=== PATIENT | male | born 1955 | race Caucasian/White ===

== ENCOUNTER → 2024-09-22 09:30 | Outpatient (REF) | payer MEDICARE, OTHER, SELFPAY | LOC: DHVS 09:30 | PROVIDERS: ATTENDING PHYSICIAN Surgery Vascular Surgery; FAMILY PHYSICIAN Internal Medicine | DX: I65.22 Occlusion and stenosis of left carotid artery (principal) | CPT/HCPCS: 93880 ==

== ENCOUNTER 2025-03-08 07:25 | Day surgery (SDC) | payer MEDICARE, OTHER, SELFPAY ==
[2025-03-08] VITALS (14 sets, daily range): BP systolic 83–175; BP diastolic 52–70; BMI 33.3
[2025-03-08 08:08] LABS: Hematocrit 38.8 % (39.0-52.0); Hemoglobin 13.1 g/dL (13.0-18.0); Mean Corp Hgb Conc. 33.8 g/dL (33.0-37.0); Mean Corpuscular Volume 97.2 fL (80.0-94.0); Platelet Count 224 10^3/uL (130-400); Red Cell Dist. Width 12.3 % (11.5-14.5)
--- NOTE | 2025-03-08 09:13 | ITS.CL.CATH ---
Legal Archivist - Catheterization
Cardiac Catheterization
Procedure Report:
LEFT HEART CATHETERIZATION
Date of Procedure: March 08, 2025
Procedures performed:
1: Coronary angiography
2: Left ventricular hemodynamic assessment
Primary Care Physician: Dr. Ailyn Pickett
Primary Skin Diver: Dr. Beulah Jaimes
INDICATION: The patient is a 69-year-old man with a past medical history significant for hypertension who is referred for cardiac catheterization in light of exertional chest symptoms concerning for angina. He reports having symptoms for over a
year and has hypertensive heart disease with poorly controlled systemic hypertension and at least moderate LVH on prior echocardiography. Nuclear perfusion images with stress testing in June were low risk. He did have a hypertensive response
with ischemic EKGs and symptoms.
ACCESS: The patient was prepped and draped in usual sterile fashion. A 6 Lao sheath was placed in the right radial 166/, 22 artery using the Seldinger over the wire technique.
HEMODYNAMIC FINDINGS (mmHg):
LV(s/d,EDP): 165/11, 22
Ao(s/d,m): 166/79, 114
ANGIOGRAPHIC FINDINGS:
Single-plane Left Ventriculography in JUAN Projection: Not done. Normal LVEF by noninvasive studies.
Coronary Angiography:
Dominance: Left
Left Main: Normal
Left Anterior Descending: The left anterior descending artery is a medium caliber vessel that has prominent proximal calcification but with only mild 30% stenotic disease. The remainder of the mid and distal LAD is widely patent with normal distal
flow. The LAD gives rise to 1 large bifurcating high diagonal branch that is widely patent with normal flow.
Left Circumflex: The left circumflex is a large-caliber dominant vessel that gives rise to 2 large obtuse marginal branches. The first OM has only very mild luminal irregularities with normal flow. The second obtuse marginal branch has diffuse
proximal 30% disease with normal distal flow. The distal circumflex gives rise to a left-sided medium caliber posterior left ventricular branch that bifurcates into 2 medium caliber branches that are widely patent with normal flow. The circumflex
terminates in a medium caliber left-sided posterior descending artery. There is a long area of 50 to 60% proximal disease with normal distal flow.
Right Coronary: The right coronary artery is a small caliber nondominant vessel. There is heavy ostial calcification with what appears to be 70-80% calcific proximal disease with normal distal flow. This was nonselectively imaged.
Fluoroscopy Time (min): 6.0
Radiation Dose (mGy): 387
DAP (Gy.cm2): 33
Closure device: None. A TR band was applied for hemostasis at the right wrist.
Complications: None.
ASSESSMENT:
1: Two-vessel coronary artery disease with the most focal obstructive lesion being a nondominant right that I would treat medically. The distal circumflex/PDA disease is borderline angiographically and given the normal perfusion scan as recently as
June I would also treat medically.
2: Mildly elevated left ventricular filling pressures in the setting of systemic hypertension.
CONCLUSIONS and RECOMMENDATIONS:
1: Aggressive medical therapy for coronary artery disease and hypertension.
2: Titrate up carvedilol from 6.25 mg twice daily to 12.5 mg twice daily today. Add amlodipine 5 mg daily. Low threshold to titrate Coreg up to 25 mg twice daily. Will have the patient keep and return a blood pressure/heart rate log and will
encourage him to follow home blood pressures in an effort to get aggressive blood pressure control as well as correlate any symptoms with blood pressures.
3: Close clinical follow-up with Dr. Jaimes as planned.
Lorelei Blakely M.D.
Copy to: Dr. Ailyn Pickett
[2025-03-08] MEDS: NSS 1000 IV (09:21)
[2025-03-08] MEDS: NSS 272 ML IV (09:23)
[2025-03-08] MEDS: LOW STRENGTH ASPIRIN 81 MG PO (09:24)
[2025-03-08] MEDS: NORVASC 5 MG PO (09:29)
== END 2025-03-08 11:50 | disposition home or self-care (01) ==
LOC: CATH 07:25
PROVIDERS: ATTENDING PHYSICIAN Internal Medicine Interventional Cardiology; FAMILY PHYSICIAN Internal Medicine; OTHER PHYSICIAN Internal Medicine
DX: I25.10 Atherosclerotic heart disease of native coronary artery without angina pectoris (principal); I11.9 Hypertensive heart disease without heart failure; I13.10 Hypertensive heart and chronic kidney disease without heart failure, with stage 1 through stage 4 chronic kidney disease, or unspecified chronic kidney disease; N18.9 Chronic kidney disease, unspecified; E78.5 Hyperlipidemia, unspecified; G47.33 Obstructive sleep apnea (adult) (pediatric); Z79.82 Long term (current) use of aspirin; Z79.899 Other long term (current) drug therapy
CPT/HCPCS: 85027; 93458; C1769; C1894; Q9967